=== PATIENT | male | born 1970 ===

== ENCOUNTER 2024-03-28 05:41 | Day surgery (SDC) | payer OTHER ==
[2024-03-23 10:52] LABS: HEMATOCRIT 44.7 % (39.0-48.0); HEMOGLOBIN 15.7 g/dL (13-16.00); MEAN CELL VOLUME 92.5 fL (80.0-100.00); MEAN CORPUSCULAR HEMOGLOBIN 32.5 pg (27.00-32.0); MEAN CORPUSCULAR HGB CONC 35.1 g/dl (32.0-36.0); PLATELET COUNT 317 K/uL (150-450); RED BLOOD COUNT 4.83 M/uL (4.00-6.00); RED CELL DISTRIBUTION WIDTH 13.2 % (11.5-14.5)
[2024-03-23 10:58] LABS: URINE APPEARANCE Clear; URINE BACTERIA 11.3 uL (0.0-1933); URINE BILIRRUBIN Negative (NEGATIVE); URINE BLOOD Negative; URINE COLOR Yellow; URINE GLUCOSE Negative (NEGATIVE); URINE LEUKOCYTE Negative; URINE NITRATE Negative; URINE PROTEIN Negative (NEGATIVE); URINE RBC 4.5 uL (0.0-20.8); URINE WBC 4.1 uL (0.0-23.2)
[2024-03-23 11:19] LABS: PARTIAL THROMBOPLASTIN TIME 30.8 SECONDS (22.0-34.0); PROTHROMBIN TIME 10.5 SECONDS (9.0-11.5)
[2024-03-23 11:21] LABS: URINE EPITHELIAL CELLS 1.3 uL (0.0-38.8)
[2024-03-23 11:25] LABS: ALBUMIN 4.2 gm/dL (3.4-5.0); BILIRUBIN TOTAL 0.58 mg/dL (0.3-1.2); CALCIUM 10.2 mg/dL (8.5-10.1); CREATININE SERUM 0.81 mg/dL (0.70-1.30); GFR 99.68; GLOBULINA 3.8 G/DL (2.4-3.5); POTASSIUM 4.43 mEq/L (3.5-5.1)
[~2024-03-28] VITALS: Ht 182.9 cm; Wt 104.3 kg
[~2024-03-28 05:41] MED LIST: LIPITOR20 MG PO; NORVASC5 MG PO
[2024-03-28] MEDS ORDERED: BUPIVACAINE HCL/MPF 0.5% 30ML VIAL ONE (07:15)
[2024-03-28] MEDS ORDERED: LIDOCAINE HCL 1%/EPINEPHRINE 20ML VIAL IJ ONE (07:15)
[2024-03-28] MEDS ORDERED: ENOXAPARIN SODIUM 40 MG/0.4 ML SYRINGE SUBCUTANEO ONE (07:16)
[2024-03-28] MEDS ORDERED: CEFAZOLIN SODIUM 1,000 MG VIAL ONE (07:16)
[2024-03-28] MEDS ORDERED: CEPHALEXIN750 MG PO (08:41)
[2024-03-28] MEDS ORDERED: PAIN RELIEF650 MG PO (08:42)
== END 2024-03-28 10:35 | disposition home or self-care (01) ==
LOC: CIR.AMB 05:41
PROVIDERS: ATTEND Surgery
DX: D21.22 Benign neoplasm of connective and other soft tissue of left lower limb, including hip (principal); R22.9 Localized swelling, mass and lump, unspecified; D49.2 Neoplasm of unspecified behavior of bone, soft tissue, and skin; I10 Essential (primary) hypertension; E78.00 Pure hypercholesterolemia, unspecified